=== PATIENT | male | born 1955 | race Caucasian/White ===

== ENCOUNTER 2017-02-01 06:30 | Day surgery (SDC) | payer OTHER ==
[2017-01-29 09:45] LABS: HEMATOCRIT 43.2 % (40.0-51.0); HEMOGLOBIN 15.2 g/dL (13.6-17.8)
--- NOTE | ~2017-02-01 | OP ---
Record Of Operation [facility] [address] [place]. [address] NAME: RUSTY AQUINO : 57 STATUS : [facility]#: [id number] AGE: 61 ADM/REG DATE : 02/01/17 MR#: [id number] REPORT SERV DATE: 02/01/17 DICTATED BY: JOSÉ MIGUEL SCHRADER DATE: 02/01/17 REPORT STATUS : Draft TRANSCRIBED BY: MODL DATE: 02/01/17 DATE OF PROCEDURE: 02/01/2017 PREOPERATIVE DIAGNOSES: 1. Bilateral chronic otitis media. 2. Right chronic otorrhea. 3. History of right cholesteatoma. POSTOPERATIVE DIAGNOSES: 1. Bilateral chronic otitis media. 2. Right chronic otorrhea. 3. History of right cholesteatoma. PROCEDURE: 1. Right revision tympanomastoidectomy. 2. NIM monitoring of cranial nerve 7. SURGEON: José Miguel Schrader M.D. ANESTHESIA: General. COMPLICATIONS: None. ESTIMATED BLOOD LOSS: 20 mL. PREOPERATIVE INFORMED CONSENT: We discussed risks and benefits of surgery, including but not limited to bleeding, infection, possible hearing loss including total deafness, possible postoperative dizziness, possible facial nerve injury resulting in temporary or permanent deficits, possible postoperative taste distortion, possible recurrence of cholesteatoma and consent is on the chart. PROCEDURE IN DETAIL: The patient was brought to the operating suite and placed on the operating room table in supine position. General endotracheal anesthesia was initiated without incident. The patient's right ear was cleaned prepped and draped in the usual sterile fashion. Following this, an ear canal and postauricular area was injected with approximately 5 mL of 1% lidocaine and 1:100,000 epinephrine for hemostasis. Following this, starting in the ear canal, a standard tympanomeatal flap was raised from the 6 o'clock to 12 o'clock position using a [place] knife and a lancet knife. There was noted during the dissection to have previous removal of the scutum from the previous surgery. The inferior annulus was identified and lifted up inferiorly and then working from inferior to superior carefully lifting up the tympanic membrane and the annulus using a Barriga needle. The chorda tympani nerve was identified and preserved. There was noted to be a cartilage graft in the posterior-superior aspect of the mesiotemporal with a significant amount of granulation tissue surrounding this area. There was noted to be a deep retraction pocket in the area the scutum which was released using a Barriga needle. Following this, a cotton ball with adrenaline, 1:1000 adrenaline was placed in the ear canal and the attention was taken to the Record Of Operation [facility] [address] [place]. [address] NAME: RUSTY AQUINO : 57 STATUS : [facility] PAT#: [id number] AGE: 61 ADM/REG DATE : 02/01/17 MR#: [id number] REPORT SERV DATE: 02/01/17 DICTATED BY: JOSÉ MIGUEL SCHRADER DATE: 02/01/17 REPORT STATUS : Draft TRANSCRIBED BY: MODIlda DATE: 02/01/17 postauricular region. A #15 blade scalpel was used to make an incision in the postauricular crease. The skin flaps were raised anteriorly and posteriorly using electrocautery, and a T-shaped incision was made in the mastoid fascia. There was extensive amount of scar tissue making dissection very difficult. There was a previous mastoidectomy defect, some osteoneogenesis had occurred, and this was carefully taken down using a 2 mm deanna celina. Extensive granulation tissue was identified and a cholesterol granuloma was identified in the mastoid cavity. This was carefully dissected from the surrounding mastoid bone using a Duckbill elevator and suctioned, and this was followed anteriorly into the antrum. This was contiguous with the epitympanum and the soft tissue was removed piecemeal during the dissection. The NIM monitor was used to identify the course of the facial nerve in the tympanic segment into the vertical segment. There appeared to be possible dehiscence in the tympanic segment up to the second genu. Once all the granulation tissue had been removed, epitympanum and mastoid was filled with Gelfoam, moistened with Tis-U-Zena, then a lyophilized dural implant graft was obtained. This was then cut to size, placed underneath the tympanomeatal flap which was laid back down in its normal anatomic position. The postauricular incision in the mastoid fascia was closed using interrupted 3-0 Vicryl followed by skin closure using 3-0 Vicryl and 4-0 chromic suture followed by the remainder of the ear canal and tympanic membrane were covered with more Gelfoam up to the lateral aspect of the ear canal followed by bacitracin ointment and a standard mastoid dressing. JScooby/MAGUEL José Miguel Schrader M.D. / [id number] CC: Octavio Karimi M.D.
[~2017-02-01 06:30] MED LIST: GLUCPH PO; PRILOSEC OTC20 MG PO
== END 2017-02-01 17:33 | disposition home or self-care (01) ==
LOC: SDC 06:30
PROVIDERS: Otolaryngology
PROC: 09BB0ZZ Excision of Right Mastoid Sinus, Open Approach (ICD-10-PCS; principal; 2017-02-01 08:00)
DX: H71.21 Cholesteatoma of mastoid, right ear (principal); H74.41 Polyp of right middle ear; H66.93 Otitis media, unspecified, bilateral; E11.9 Type 2 diabetes mellitus without complications; K21.9 Gastro-esophageal reflux disease without esophagitis; Z98.890 Other specified postprocedural states; Z79.899 Other long term (current) drug therapy; Z88.1 Allergy status to other antibiotic agents; Z88.8 Allergy status to other drugs, medicaments and biological substances; Z86.73 Personal history of transient ischemic attack (TIA), and cerebral infarction without residual deficits; Z87.891 Personal history of nicotine dependence
CPT/HCPCS: 82962; 85014; 85018; 88305; 88311; 88341; 88342; 93005; A9270-GY; C1763; J0690; J2250; J2405; J3010